=== PATIENT | male | born 2000 | race Two or more races ===

== ENCOUNTER 2024-08-15 13:31 | Emergency (ER) | payer BC, MEDICAID, SELFPAY ==
[2024-08-15 13:36] VITALS: BP 102/70; PULSE 58; RESP 16; TEMP 36.6; O2SAT 97
[2024-08-15 14:21] VITALS: BMI 32.3
--- NOTE | 2024-08-15 14:41 | XR_ITS ---
Examination: Right knee 2 views TECHNIQUE: AP lateral right knee 2 views Exam date time: August 15, 2024, 1630 hours INDICATIONS: Patient fell down today with injury of the knee, knee pain FINDINGS: Acute comminuted fracture lateral tibial plateau and proximal lateral tibial metaphyseal region Severe depression of the lateral tibial plateau Femur fibula appear intact Large amounts of blood in the joint space IMPRESSION: Severe fracture proximal lateral tibia with severe depression lateral tibial plateau
--- NOTE | 2024-08-15 14:41 | XR_ITS ---
Examination: Right femur 2 views Technique one AP lateral right femur 2 views Exam date and time: August 15, 2024, 1625 hours INDICATIONS: Patient fell today with injury to the femur, femur pain. FINDINGS: No acute hip or femoral shaft fracture Please see the right knee report today for description of comminuted severe fracture lateral tibial plateau IMPRESSION: Right hip femoral shaft intact
--- NOTE | 2024-08-15 14:41 | XR_ITS ---
Examination: Tibia-Fibula, right , 2 views Technique: Tibia-fibula AP lateral 2 views Date and time of exam: August 15, 2024 1613 hours INDICATIONS: Patient fell today with injury to lower leg, lower leg pain. FINDINGS: Acute severe fracture proximal lateral tibia with severe depression of the lateral tibial plateau Fibula intact No foreign bodies IMPRESSION: Acute severe fractures proximal lateral tibial metaphyseal region with severe compression of the lateral tibial plateau
--- NOTE | 2024-08-15 14:42 | PD.EDLOWEX ---
Lower Extremity Injury RME/HPI General Chief Complaint: Extremity Injury, Lower Stated Complaint: FALL Time Seen by Provider: 08/15/24 14:41 Arrival date/time: 08/15/24 13:31 RME / HPI RME / HPI Narrative: 24-year-old male patient with significant history of liver transplant, hypertension, came in for evaluation regarding right knee injury. Patient jumped off his truck and suddenly complained of pain to the right knee described as sharp pain, severity severe unable to ambulate due to pain. Denies any other injury. Incident happened few minutes prior to ER visit. Patient is not take any blood thinner Related Data Home Medications ?Medication ?Instructions ?Recorded ?Confirmed furosemide 40 mg tablet 80 mg PO DAILY 06/28/23 06/28/23 hydrocortisone 10 mg tablet 10 mg PO DAILY 06/28/23 06/28/23 hydrocortisone 5 mg tablet 5 mg PO DAILY 06/28/23 06/28/23 lactulose 10 gram/15 mL oral 45 ml PO TID 06/28/23 06/28/23 solution levothyroxine 25 mcg tablet 25 mcg PO DAILY 06/28/23 06/28/23 magnesium oxide 400 mg (241.3 mg 800 mg PO BID 06/28/23 06/28/23 magnesium) tablet mycophenolate sodium 360 mg 360 mg PO BID 06/28/23 06/28/23 tablet,delayed release patiromer calcium sorbitex 8.4 8.4 g PO QDAY 06/28/23 06/28/23 gram oral powder packet (Veltassa) penicillin V potassium 250 mg 250 mg PO BID 06/28/23 06/28/23 tablet rifaximin 550 mg tablet (Xifaxan) 550 mg PO BID 06/28/23 06/28/23 sodium bicarbonate 650 mg tablet 1,950 mg PO TID 06/28/23 06/28/23 tacrolimus 0.5 mg capsule, 0.5 mg PO BID 06/28/23 06/28/23 immediate-release ursodiol 250 mg tablet 250 mg PO TID 06/28/23 06/28/23 vitamin E (dl, acetate) 45 mg (100 200 mg PO DAILY 06/28/23 06/28/23 unit) capsule Previous Rx's ?Medication ?Instructions ?Recorded amlodipine 10 mg tablet 10 mg PO DAILY 30 days #30 tabs 07/01/23 acetaminophen 300 mg-codeine 30 mg 1 tab PO Q8H PRN pain #20 tabs 08/15/24 tablet Allergies Allergy/AdvReac Type Severity Reaction Status Date / Time acyclovir Allergy HIVES Verified 07/14/13 19:22 ganciclovir Allergy HIVES Verified 07/14/13 19:22 spironolactone Allergy Verified 08/19/23 18:04 Sulfa (Sulfonamide Allergy HIVES Verified 07/14/13 19:22 Antibiotics) vancomycin Allergy HIVES Verified 07/14/13 19:22 Review of Systems Review of Systems Narrative Review of Systems: Review of system reviewed and within normal limits except mentioned in HPI ED Exam Narrative Physical exam: VITAL SIGNS: Reviewed. GENERAL APPEARANCE: Alert and interactive, follows commands, no acute distress, HEAD AND FACE: Non-traumatic. ENT: PERRL, pink conjunctivitis, eyelid no trauma, Mucous membrane moist. NECK: Supple, nontender, no nuchal rigidity. CHEST: No tenderness, no crepitus, no paradoxical movement, no retractions. LUNGS: Clear, well ventilated, symmetric, no rales, no wheezing, no ronchi, no stridor, good breath sounds bilaterally. HEART: Regular rate, regular rhythm, no murmur, no gallops. ABDOMEN: Soft, positive bowel sounds, nondistended, no guarding, nontender, no rebound, no masses, RECTAL: Deferred. GENITAL: Deferred. NEUROLOGICAL: Gross motor function intact sensory function intact, Appropriate for age. MUSCULOSKELETAL: low back nontender, full range of motion. EXTREMITIES: Right knee swelling tenderness, limitation range of motion. SKIN: Color pink, dry, no rash, no lacerations, no abrasions, no contusions. LYMPHATICS: Deferred. Course Quality Measures none Orders Category Date Time Status Apply knee immobilizer ONCE Care 08/15/24 16:58 Active Crutches .NOW Care 08/15/24 16:58 Active Insert IV NOW Care 08/15/24 17:[address] knee RT wo con Stat Exams 08/15/24 16:55 Completed XR femur RT 2V Stat Exams 08/15/24 14:41 Completed XR knee limited RT 2V Stat Exams 08/15/24 14:41 Completed XR tibia fibula RT 2V Stat Exams 08/15/24 14:41 Completed CBC [CBC] Stat Lab 08/15/24 16:50 Completed CMP [Comprehensive Metabolic Panel] Stat Lab 08/15/24 16:50 Completed PT [Prothrombin Time with INR] Stat Lab 08/15/24 16:50 Completed PTT [Partial Thromboplastin Time] Stat Lab 08/15/24 16:50 Completed UA, C/S IF [Urinalysis, C/S if Indicated] Stat Lab 08/15/24 16:39 Ordered HYDROcodone/APAP 10/325 [[place] 10/325] Med 08/15/24 14:42 Discontinued 1 tab PO X1 ONE Morphine Inj Med 08/15/24 16:58 Discontinued 4 mg IVP X1 ONE Sod Polystyrene Sulfon Susp [Kayexalate Susp] Med 08/15/24 19:15 Discontinued 30 gm PO X1 ONE Vital Signs Vital signs: Vital Signs Temperature 97.9 F 08/15/24 13:36 Pulse Rate 58 L 08/15/24 13:36 Respiratory Rate 16 08/15/24 13:36 Blood Pressure 102/70 08/15/24 13:36 Pulse Oximetry (%) 97 08/15/24 13:36 Oxygen Delivery Method Room Air 08/15/24 13:36 Extremity Injury, Lower MDM Narrative MDM Narrative:: 24-year-old male patient with significant history of liver transplant, hypertension, came in for evaluation regarding right knee injury. Patient jumped off his truck and suddenly complained of pain to the right knee described as sharp pain, severity severe unable to ambulate due to pain. Denies any other injury. Incident happened few minutes prior to ER visit. Patient is not take any blood thinner X-ray of the right knee showed tibial plateau fracture, CT scan of the knee, showed tibial plateau fracture, patient potassium was noted to be 5.5. Patient was given Kayexalate 30 g p.o. Patient's total bili was noted to be 3.3, AST of 49, alkaline phos of 236, results discussed with the family, who told me that does the patient's baseline and his liver specialist at [place] knows about it and working on it. I consulted Dr. Montoya, orthopedic surgeon, who told me to put knee immobilizer and advised them follow-up in his clinic Sunday 3 PM for surgery the next day. Knee immobilizer applied, distal neurovascular status post splinting. Patient data External records reviewed:: None Clinical information provided by:: patient Social determinants that could affect healthcare access:: none Patient has the following chronic illnesses:: None How is presenting disease/condition affected by chronic disease/condition?: no chronic disease Evaluation data The following diagnostics were reviewed and interpreted by me:: lab results and radiology exam(s) Lab and/or radiology exams considered but not ordered:: None Interpretation Summary: Results in [facility] Medications / Prescriptions Medications or Prescriptions considered but not ordered:: None Medication administrations:: Medication Administration History Discontinued Medications Hydrocodone Bitart/Acetaminophen (Hydrocodone/[place]ap 10/325 Tab) 1 tab PO X1 ONE Stop: 08/15/24 14:43 Last Admin: 08/15/24 15:20 Dose: 1 tab Documented By: Morphine Sulfate (Morphine Sulf Inj 10 Mg/Ml Vial) 4 mg IVP X1 ONE Stop: 08/15/24 16:59 Last Admin: 08/15/24 17:35 Dose: 4 mg Documented By: DB Sodium Polystyrene Sulfonate (Sod Polystyrene Sulfon Susp 15 Gm/60 Ml Btl) 30 gm PO X1 ONE Stop: 08/15/24 19:16 Morphine and [place]. Patient was also given Kayexalate. Consultations Consultation(s) initiated? (list below): Yes Consultation #1 (Physician, Specialty, Details): Dr. Montoya, orthopedic surgeon thank you Diagnosis Extremity Injury, Lower Differential Diagnosis: fracture of femur and other (Knee sprain, tibial plateau fracture) Most likely diagnosis given after review of the tests above:: Tibial plateau fracture Admission Indicated Admission indicated?: not indicated Explain why admission is indicated or not indicated:: Stable Admission Request Was there a request for admission?: No Admission Attestation Admission request attestation: None Disposition Plan Disposition Plan: Discharge Discharge Attestation Discharge Attestation: The patient and all family members were given an opportunity to ask questions and understood the discharge instructions. Discharge instructions specifically effects, indications for sooner follow up or return to the emergency department, and the expected course of current diagnosis. Patient condition: Stable Discharge Plan Plan Patient Disposition: HOME (Self Care) Disposition Comment: Stable Prescriptions/Referrals Prescriptions/Med Rec: New acetaminophen-codeine 300-30 mg tablet 1 tab PO Q8H PRN (Reason: pain) Qty: 20 0RF No Action furosemide 40 mg tablet 80 mg PO DAILY Rx Instructions: Take 2 tablets (80mg) by mouth daily ursodiol 250 mg tablet 250 mg PO TID Patient Comments: TAKE 1 TABLET BY MOUTH 3 TIMES A DAY WITH MEALS *NC* hydrocortisone 10 mg tablet 10 mg PO DAILY Patient Comments: TAKE 1 TABLET (10 MG TOTAL) BY MOUTH EVERY MORNING.*NC* Rx Instructions: Take one tablet (10mg) by mouth every morning vitamin E (dl, acetate) 45 mg (100 unit) capsule 200 mg PO DAILY Patient Comments: TAKE 2 CAPSULES (200 UNITS TOTAL) BY MOUTH DAILY- OTC VITAMIN E 200 UNITS Xifaxan 550 mg tablet 550 mg PO BID Patient Comments: TAKE 1 TABLET BY MOUTH TWICE A DAY Veltassa 8.4 gram Powder In Packet 8.4 g PO QDAY penicillin V potassium 250 mg tablet 250 mg PO BID Patient Comments: TAKE 1 TABLET BY MOUTH 2 TIMES A DAY. hydrocortisone 5 mg tablet 5 mg PO DAILY Patient Comments: TAKE 1 TABLET (5 MG TOTAL) BY MOUTH DAILY IN THE EVENING levothyroxine 25 mcg tablet 25 mcg PO DAILY Patient Comments: TAKE 1 TABLET BY MOUTH EVERY MORNING BEFORE BREAKFAST Rx Instructions: Take 1 tablet by mouth every morning before breakfast magnesium oxide 400 mg (241.3 mg magnesium) tablet 800 mg PO BID Patient Comments: TAKE 2 TABLETS BY MOUTH TWICE A DAY sodium bicarbonate 650 mg tablet 1,950 mg PO TID Patient Comments: TAKE 3 TABLETS (1,950 MG TOTAL) BY MOUTH 3 TIMES A DAY tacrolimus 0.5 mg capsule 0.5 mg PO BID Patient Comments: TAKE 1 CAPSULE (0.5 MG TOTAL) BY MOUTH 2 TIMES A DAY mycophenolate sodium 360 mg tablet,delayed release (DR/EC) 360 mg PO BID Patient Comments: TAKE 1 TABLET BY MOUTH TWICE A DAY lactulose 10 gram/15 mL solution 45 ml PO TID Patient Comments: TAKE 45 ML (30 GM TOTAL) BY MOUTH 3 TIMES A DAY amlodipine 10 mg tablet 10 mg PO DAILY 30 Days Qty: 30 0RF Referrals: oP (PCP)Kris MD [Primary Care Provider] - In 1 week Jesse Montoya MD [Physician] - 08/18/24 (Please show up in the clinic 3 PM Sunday) Problem List Clinical Impression: History of liver transplant, Closed fracture of right tibial plateau Patient/Caregiver Discharge Instructions Discharge Activity: activity as tolerated Education Materials: ED Fracture, Lower Extremity Additional Instructions: Thank you for the opportunity for serving you today. You are stable for discharged . You are advised to: Follow-up with Dr. Montoya, orthopedic surgeon, this coming Sunday at 3 PM please show up in the clinic, the orthopedic surgeon already knows about you Return to ED for worsening of symptoms Increase oral fluids Take medication as prescribed Elevate your leg as needed Print Language: Irish Stand Alone Forms: Lauryn Award Info., Patient Portal Info Letter PA/FITTING ROOM CHECKER Supervising Physician PA/FITTING ROOM CHECKER Supervising Physician: MD Russ
[2024-08-15] MEDS: HYDROcodone/APAP 10/325 TAB PO (15:20)
--- NOTE | 2024-08-15 16:55 | XR_ITS ---
Examination: CT right knee, without contrast. 2-D sagittal reconstructions. 2-D coronal reconstructions. 3-D reconstructions. Date and time of exam:August 15, 2024 at 1724 hours INDICATIONS: Patient fell today with injury to the knee, knee pain CTDI: vol (mGy):12.8 DLP: (mGycm):449 Technique: Multiple 1.25 mm axial sections of the right knee without intravenous contrast have been obtained. 2-D sagittal and coronal reconstructions have been obtained. 3-D reconstructions have been obtained. Low dose protocols were performed. One or more of the following dose reduction techniques were used; automated exposure control, adjustment of the mA and/or KV according to patient size, use of iterative reconstruction technique. Findings: Acute comminuted fracture lateral tibial plateau and lateral proximal tibial metaphyseal region with severe depression of the lateral tibial plateau measuring up to 28 mm posteriorly Distal femur femoral condyles intact Patella is intact Fibula intact Extensive blood in the joint space IMPRESSION: Severe comminuted fracture lateral tibial plateau and lateral proximal tibial metaphyseal region Severe depression of the lateral tibial plateau
[2024-08-15 17:13] LABS: Basophils # (Auto) 0.1 Thou/mm3 (0.0-0.2); Basophils % (Auto) 1 % (0-2.5); Eosinophils # (Auto) 0.5 Thou/mm3 (0.0-0.5); Eosinophils % (Auto) 5 % (0-10); Hematocrit 29.8 % (41.0-53.0); Hemoglobin 11.2 g/dL (13.5-16.0); Immature Granulocytes % (Auto) 0 % (0-0); Immature Granulocytes Auto 0.02 Thou/mm3 (0.00-0.00); Lymphocytes # (Auto) 4.1 Thou/mm3 (1.0-4.8); Lymphocytes % (Auto) 42 % (10-50); Mean Corpuscular HGB Conc 37.6 g/dl (31.0-37.0); Mean Corpuscular Hemoglobin 31.3 pg (25.0-35.0); Mean Corpuscular Volume 83 fL (80-100); Monocytes # (Auto) 1.3 Thou/mm3 (0.0-0.8); Monocytes % (Auto) 13 % (0-12); Neutrophils # (Auto) 3.7 Thou/mm3 (1.8-7.7); Neutrophils % (Auto) 38 % (37-80); Nucleated Red Blood Cell % 0 /100 WBC (0); Platelet Count 89 Thou/mm3 (140-440); RDW Standard Deviation 45.8 fL (35.1-43.9); Red Blood Count 3.58 Miln/mm3 (4.50-5.90); White Blood Count 9.7 Thou/mm3 (3.8-10.6)
[2024-08-15] MEDS: MORPHINE SULF INJ 10 MG/ML VIAL 4 MG IVP ×2 (17:35→19:59)
[2024-08-15 17:50] LABS: Alanine Aminotransferase 18 U/L (10-49); Albumin, Serum 2.8 gm/dL (3.5-5.0); Albumin/Globulin Ratio 0.9 (1.2-2.2); Alkaline Phosphatase 236 U/L (46-116); Anion Gap 6 (7-16); Aspartate Amino Transferase 49 U/L (0-34); BUN/Creatinine Ratio 17 Ratio (12-20); Bilirubin,Total 3.3 mg/dL (0.3-1.2); Blood Urea Nitrogen 25 mg/dL (9-23); Calcium 8.3 mg/dL (8.3-10.6); Calcium (Corrected) 9.3 mg/dL (8.5-10.1); Carbon Dioxide 23.5 mMol/L (20.0-31.0); Chloride 113 mMol/L (98-107); Creatinine (Component) 1.5 mg/dL (0.6-1.3); Estimated Creatinine Clearance 87.5 mL/min (>60); Globulin 3.1 gm/dL (2.3-3.5); Glucose 102 mg/dL (74-106); Osmolality,Calculated 287 (275-295); Potassium 5.5 mMol/L (3.4-5.1); Sodium 142 mMol/L (136-145); Total Protein 5.9 gm/dL (5.7-8.2); eGFR > 60 See Note
[2024-08-15 18:03] LABS: INR 1.4 (0.9-1.3); Partial Thromboplastin Time 32.7 Seconds (22.0-36.0); Prothrombin Time 14.9 Seconds (9.0-12.2)
[2024-08-15 18:19] VITALS: BP 144/86; PULSE 64; RESP 18; TEMP 36.6; O2SAT 96
[2024-08-15] MEDS: ONDANSETRON INJ 2 MG/ML INJ 2 ML 4 MG IV (19:58)
[2024-08-15] MEDS: SOD POLYSTYRENE SULFON SUSP 15 GM/60 ML BTL 30 GM PO (19:59)
[2024-08-15 20:05] VITALS: BP 144/86; PULSE 70; RESP 16; TEMP 36.6; O2SAT 97
== END 2024-08-15 20:05 | disposition home or self-care (01) ==
PROVIDERS: Nurse Practitioner Family; Emergency Provider Emergency Medicine; PCP Family Medicine
DX: S82.141A Displaced bicondylar fracture of right tibia, initial encounter for closed fracture (principal); S79.921A Unspecified injury of right thigh, initial encounter; S89.91XA Unspecified injury of right lower leg, initial encounter; W19.XXXA Unspecified fall, initial encounter; Z94.4 Liver transplant status
CPT/HCPCS: 36415; 73552; 73560; 73590; 73700; 80053; 81001; 85025; 85610; 85730; 96374; 96375; 96376; 99284; J2270; J2405; A9270

== ENCOUNTER 2024-09-05 07:28 | Emergency (ER) | payer BC, MEDICAID, SELFPAY ==
[2024-09-05 07:29] VITALS: BMI 28.9
[2024-09-05 07:45] VITALS: BP 137/94; PULSE 77; RESP 17; TEMP 37.2; O2SAT 96; BMI 28.9
--- NOTE | 2024-09-05 07:59 | XR_ITS ---
Examination: Duplex scan of the lower extremity, unilateral right Date and time of exam: September 05, 2024 0815 hours INDICATIONS: Postop 1 week with leg swelling and pain Technique: Duplex scan of the extremity veins using B-mode/grayscale imaging and Doppler spectral analysis and color flow Attention is directed to internal echogenicity, compression and augmentation involving these veins, color flow assessment, spectral analysis Findings: Major deep venous structures in the extremity demonstrate normal course and caliber. There is no evidence of deep vein thrombosis. Normal color flow and spectral analysis 22 mm popliteal cyst Impression: Negative for DVT..
--- NOTE | 2024-09-05 09:41 | EDNOTE_ITS ---
<Statement entered by Venecia Ramirez MD - 09/16/24 06:09> As co-signing physician, I was present and available for consult prn. I concur with the plan and care as documented by the midlevel provider. Lower Extremity Injury RME/HPI General Chief Complaint: Extremity Injury, Lower Stated Complaint: SWELLING TO SURGICAL SITE Time Seen by Provider: 09/05/24 07:30 Arrival date/time: 09/05/24 07:28 24-year-old male with recent surgery to right lower extremity at [facility] with father per patient and father patient does have swelling to the right lower extremity. Limitations: no limitations Related Data Home Medications ?Medication ?Instructions ?Recorded ?Confirmed furosemide 40 mg tablet 80 mg PO DAILY 06/28/2311/13 hydrocortisone 10 mg tablet 10 mg PO DAILY 06/28/23 hydrocortisone 5 mg tablet 5 mg PO DAILY 06/28/2311/13 lactulose 10 gram/15 mL oral 45 ml PO TID 06/28/2311/13 solution levothyroxine 25 mcg tablet 25 mcg PO DAILY 06/28/23 0 06/28/23 magnesium oxide 400 mg (241.3 mg 800 mg PO BID 4 06/28/23 magnesium) tablet mycophenolate sodium 360 mg 360 mg PO BID 06/28/2311/13 tablet,delayed release patiromer calcium sorbitex 8.4 8.4 g PO QDAY 06/28/23 06/28/23 gram oral powder packet (Veltassa) penicillin V potassium 250 mg 250 mg PO BID 06/28/23 0 06/28/23 tablet rifaximin 550 mg tablet (Xifaxan) 550 mg PO BID 06/28/23 sodium bicarbonate 650 mg tablet 1,950 mg PO TID 06/2706/28/23 tacrolimus 0.5 mg capsule, 0.5 mg PO BID 06/28/2311/13 immediate-release ursodiol 250 mg tablet 250 mg PO TID 06/28/2306/27 vitamin E (dl, acetate) 45 mg (100 200 mg PO DAILY 11/1306/28/23 unit) capsule Previous Rx's ?Medication ?Instructions ?Recorded amlodipine 10 mg tablet 10 mg PO DAILY 30 days #30 t abs 07/01/23 acetaminophen 300 mg-codeine 30 mg 1 tab PO Q8H PRN pa in #20 tabs 08/15/24 tablet Allergies Allergy/AdvReac Type Severity Reaction Status Date / Time acyclovir Allergy HIVES Verified 07/14/13 19:22 ganciclovir Allergy HIVES Verified 07/14/13 19:22 spironolactone Allergy Verified 08/19/23 18:04 Sulfa (Sulfonamide Allergy HIVES Verified 07/14/13 19:22 Antibiotics) vancomycin Allergy HIVES Verified 07/14/13 19:22 Review of Systems Review of Systems Systems Reviewed: All systems reviewed, normal except as documented Constitutional Constitutional: Reports system reviewed and no additional complaints, except as documented, Denies fatigue, Denies fever(s) and Denies headache(s) Eyes Eyes: Reports system reviewed and no additional complaints, except as documented ENT Ears, Nose, Mouth, and Throat: Reports system reviewed and no additional complaints, except as documented, Denies dizziness and Denies headache(s) Cardiovascular Cardiovascular: Reports system reviewed and no additional complaints, except as documented, Denies chest pain, Denies dyspnea and Denies dyspnea on exertion Respiratory Respiratory: Reports system reviewed and no additional complaints, except as documented, Denies chest congestion, Denies cough, Denies dyspnea and Denies dyspnea on exertion Gastrointestinal Gastrointestinal: Reports system reviewed and no additional complaints, except as documented, Denies abdominal pain, Denies nausea and Denies vomiting Musculoskeletal Musculoskeletal: Reports system reviewed and no additional complaints, except as documented, Reports abnormal gait, Reports arthralgias, Denies numbness, Denies stiffness and Denies tingling Integumentary/Breasts Skin/Breast: Reports system reviewed and no additional complaints, except as d ocumented, Denies rash and Reports wounds (Surgical site right lower extremity mild swelling entire right leg) Neurologic Neurologic: Reports system reviewed and no additional complaints, except as documented, Reports abnormal gait, Denies dizziness, Denies headache(s), Denies numbness and Denies tingling Psychiatric Psychiatric: Reports system reviewed and no additional complaints, except as documented and Denies anxiety Endocrine Endocrine: Denies fatigue Past Medical History Past Medical History NEUROLOGIC: Negative Neurological Disorders CARDIAC: Positive Cardiac Disorders and Hypertension; Negative Congestive Heart Failure RESPIRATORY: Positive Asthma (When he was around 6 y/o); Negative Chronic Obstructive Pulmonary Disease (COPD) GASTROINTESTINAL: Positive Gastrointestinal Disorders (liver failure/transplant) GENITOURINARY: Positive Genitourinary Disorders and Renal Disease MUSCULOSKELETAL: Negative Musculoskeletal Disorders ENDOCRINE: Positive Endocrine Disorders, Hypothyroidism, Pituitary Disease and Adrenal Disease (insufficiency); Negative Diabetes Mellitus Type 1 or Diabetes Mellitus Type 2 HEMATOLOGIC: Negative Blood Disorders OTHER HISTORY: Positive Hospitalization, Organ Transplant and Cancer; Negative Autoimmune Disease, Anesthesia Reactions, MRSA, VRSA, Vancomycin- Resistant Enterococci or Clostridium Difficile Family History FAMILY HISTORY: Negative Family Psychiatric Problems, Family Respiratory Disorders, Family Cardiac Disorders, Family Gastrointestinal Problems, Family Cancer, Family Surgery or Family Anesthesia Reaction Surgical History SURGICAL: Positive Abdominal Surgery and Organ Transplant; Negative Endocrine Surgery, Ear Surgery, Joint Replacement or Neurologic Surgery Social History SMOKING STATUS: Never smoker ED Exam General Limitations: Present no limitations General appearance: Present alert and in no apparent distress Head Head exam: Present atraumatic Eye Eye exam: Present normal appearance, PERRL and EOMI ENT ENT exam: Present normal exam, normal oropharynx and mucous membranes moist Neck Neck exam: Present normal inspection, full ROM and trachea midline Chest Chest inspection: Present normal inspection and symmetric chest wall rise Respiratory Respiratory exam: Present normal lung sounds bilaterally Cardiovascular Cardiovascular exam: Present regular rate, normal rhythm and normal heart sounds Abdominal Exam Abdominal exam: Present soft and normal bowel sounds Extremities Exam Extremities exam: Present full ROM, tenderness, normal capillary refill and other (Swelling right lower extremity); Absent pedal edema or calf tenderness Back Exam Back exam: Present normal inspection and full ROM Neurological Exam Neurological exam: Present alert, oriented X3 and CN II-XII intact Psychiatric Psychiatric exam: Present normal affect and normal mood Skin Skin exam: Present warm, dry and other (Suture site right lower extremity) Course Quality Measures none Orders Category Date Time Status US venous doppler LE RT Stat Exams 09/05/24 07:59 Completed Vital Signs Vital signs: Vital Signs Temperature 99.0 F 09/05/24 07:45 Pulse Rate 77 09/05/24 07:45 Respiratory Rate 17 09/05/24 07:45 Blood Pressure 137/94 H 09/05/24 07:45 Pulse Oximetry (%) 96 09/05/24 07:45 Oxygen Delivery Method Room Air 09/05/24 07:45 O2 saturation 96% on room air within normal limits Extremity Injury, Lower MDM Narrative MDM Narrative:: 24-year-old male with recent surgery to right lower extremity at [facility] with father per patient and father patient does have swelling to the right lower extremity. On exam patient's surgical site does not show evidence of infection there is no redness or warmth. Patient appears to have dependent edema of the right lower extremity Ultrasound obtained no acute DVT noted Explained to the patient and father patient needs to follow-up with surgeon and for worsening symptoms or concerns return to the ER immediately Patient is hemodynamically stable and well-appearing Patient data External records reviewed:: [facility] previous records Clinical information provided by:: patient Social determinants that could affect healthcare access:: none Patient has the following chronic illnesses:: See history How is presenting disease/condition affected by chronic disease/condition?: caused by Evaluation data The following diagnostics were reviewed and interpreted by me:: radiology exam(s) Lab and/or radiology exams considered but not ordered:: Radiology obtain Interpretation Summary: Reviewed by me Medications / Prescriptions Medications or Prescriptions considered but not ordered:: No med Medication administrations:: No meds Consultations Consultation(s) initiated? (list below): No Diagnosis Extremity Injury, Lower Differential Diagnosis: other (DVT, dependent edema, edema, infection) Most likely diagnosis given after review of the tests above:: Dependent edema right lower extremity Admission Indicated Admission indicated?: not indicated Admission Request Was there a request for admission?: No Disposition Plan Disposition Plan: Discharge Discharge Attestation Discharge Attestation: The patient and all family members were given an opportunity to ask questions and understood the discharge instructions. Discharge instructions specifically effects, indications for sooner follow up or return to the emergency department, and the expected course of current diagnosis. Patient condition: Stable Discharge Plan Plan Patient Disposition: HOME (Self Care) Discharge Disposition comment: Stable Prescriptions/Referrals Prescriptions/Med Rec: No Action acetaminophen-codeine 300-30 mg tablet 1 tab PO Q8H PRN (Reason: pain) Qty: 20 0RF furosemide 40 mg tablet 80 mg PO DAILY Rx Instructions: Take 2 tablets (80mg) by mouth daily ursodiol 250 mg tablet 250 mg PO TID Patient Comments: TAKE 1 TABLET BY MOUTH 3 TIMES A DAY WITH MEALS *NC* hydrocortisone 10 mg tablet 10 mg PO DAILY Patient Comments: TAKE 1 TABLET (10 MG TOTAL) BY MOUTH EVERY MORNING.*NC* Rx Instructions: Take one tablet (10mg) by mouth every morning vitamin E (dl, acetate) 45 mg (100 unit) capsule 200 mg PO DAILY Patient Comments: TAKE 2 CAPSULES (200 UNITS TOTAL) BY MOUTH DAILY- OTC VITAMIN E 200 UNITS Xifaxan 550 mg tablet 550 mg PO BID Patient Comments: TAKE 1 TABLET BY MOUTH TWICE A DAY Veltassa 8.4 gram Powder In Packet 8.4 g PO QDAY penicillin V potassium 250 mg tablet 250 mg PO BID Patient Comments: TAKE 1 TABLET BY MOUTH 2 TIMES A DAY. hydrocortisone 5 mg tablet 5 mg PO DAILY Patient Comments: TAKE 1 TABLET (5 MG TOTAL) BY MOUTH DAILY IN THE EVENING levothyroxine 25 mcg tablet 25 mcg PO DAILY Patient Comments: TAKE 1 TABLET BY MOUTH EVERY MORNING BEFORE BREAKFAST Rx Instructions: Take 1 tablet by mouth every morning before breakfast magnesium oxide 400 mg (241.3 mg magnesium) tablet 800 mg PO BID Patient Comments: TAKE 2 TABLETS BY MOUTH TWICE A DAY sodium bicarbonate 650 mg tablet 1,950 mg PO TID Patient Comments: TAKE 3 TABLETS (1,950 MG TOTAL) BY MOUTH 3 TIMES A DAY tacrolimus 0.5 mg capsule 0.5 mg PO BID Patient Comments: TAKE 1 CAPSULE (0.5 MG TOTAL) BY MOUTH 2 TIMES A DAY mycophenolate sodium 360 mg tablet,delayed release (DR/EC) 360 mg PO BID Patient Comments: TAKE 1 TABLET BY MOUTH TWICE A DAY lactulose 10 gram/15 mL solution 45 ml PO TID Patient Comments: TAKE 45 ML (30 GM TOTAL) BY MOUTH 3 TIMES A DAY amlodipine 10 mg tablet 10 mg PO DAILY 30 Days Qty: 30 0RF Referrals: Po (PCP),MD Kris [Primary Care Provider] - In 1 week Problem List Clinical Impression: Dependent edema Patient/Caregiver Discharge Instructions Additional Instructions: Please follow-up with your regional telecommunications specialist as discussed for worsening symptoms or concerns return immediately Print Language: Citizen Of [place] Stand Alone Forms: Lauryn Award Info., Patient Portal Info Letter PA/PASSENGER CONDUCTOR Supervising Physician PA/[place]ADW[place] Supervising Physician: Dr. ramirez
[2024-09-05 10:01] VITALS: PULSE 78
== END 2024-09-05 10:02 | disposition home or self-care (01) ==
PROVIDERS: Emergency Provider Emergency Medicine; PCP Family Medicine
DX: R60.0 Localized edema (principal)
CPT/HCPCS: 93971; 99284